=== PATIENT | female | born 1940 | race American Indian/Alaskan Native ===

== ENCOUNTER 2016-09-24 16:13 | Emergency (ER) | payer MEDICARE ==
[2016-09-24] MEDS ORDERED: NACL 0.9% 500 ML 500 ML IV ONE (16:37)
[2016-09-24] MEDS ORDERED: ZOFRAN IV ONE (16:37)
--- NOTE | 2016-09-24 16:42 | Emergency Department Report ---
ED N/V/D HPI - General Stated complaint: WEAKNESS Time Seen by Provider: 09/24/16 16:31 - History of Present Illness Initial comments: 75-year-old female here with complaint of generalized weakness and nausea. Also complains of pain around her backside. Denies fevers chills. States this is been getting worse over the last several days but today she felt significantly weaker. -: Gradual Associated Abdominal Pain: No (pain around rectum) Radiation: none Worsens with: none - Related Data Previous Rx's Medication Instructions Recorded Last Taken Type Aspirin [Aspirin BABY CHEW TAB] 81 mg PO QDAY #30 tab.chew 11/05/15 Unknown Rx Calcium Acetate 667 mg PO TID #90 capsule 11/05/15 Unknown Rx Carvedilol [Coreg] 25 mg PO BID #60 tablet 11/05/15 Unknown Rx Cinacalcet [Sensipar] 30 mg PO QDAY #30 tablet 11/05/15 Unknown Rx Insulin Glargine [Lantus VIAL] 12 units SUB-Q QHS #1 units 11/05/15 Unknown Rx Lisinopril [Zestril TAB] 40 mg PO QDAY #30 tablet 11/05/15 Unknown Rx Sevelamer Carbonate [Renvela] 800 mg PO TIDWM #90 tablet 11/05/15 Unknown Rx Vit B Cmplx 3/FA/Vit C/Biotin 1 each PO QDAY #30 tablet 11/05/15 Unknown Rx [Kira-Loco Rx Tablet] Allergies Allergy/AdvReac Type Severity Reaction Status Date / Time codeine AdvReac Nausea Verified 01/28/15 10:54 ED Review of Systems ROS: Stated complaint: WEAKNESS Other details as noted in HPI Comment: All other systems reviewed and negative Constitutional: weakness ENT: denies: ear pain, throat pain Respiratory: denies: cough, shortness of breath Cardiovascular: denies: chest pain, palpitations Gastrointestinal: denies: abdominal pain, nausea Genitourinary: denies: dysuria, frequency, hematuria Musculoskeletal: arthralgia Skin: denies: rash Neurological: weakness. denies: headache ED Past Medical Hx - Past Medical History Hx Hypertension: Yes Hx CVA: Yes ("MINI STROKES") Hx Congestive Heart Failure: Yes Hx Diabetes: Yes Hx Renal Disease: Yes (DIALYSIS --) Hx Arthritis: Yes Hx Kidney Stones: Yes Hx Dementia: Yes - Surgical History Hx Cholecystectomy: Yes Hx Appendectomy: Yes Additional Surgical History: HYSTERECTOMY. GRAFT LEFT UPPER ARM. - Family History Family history: no significant, renal disease - Social History Smoking Status: Never Smoker - Medications Home Medications: Home Medications Medication Instructions Recorded Confirmed Last Taken Type Aspirin [Aspirin BABY CHEW TAB] 81 mg PO QDAY #30 tab.chew 11/05/15 Unknown Rx Calcium Acetate 667 mg PO TID #90 capsule 11/05/15 Unknown Rx Carvedilol [Coreg] 25 mg PO BID #60 tablet 11/05/15 Unknown Rx Cinacalcet [Sensipar] 30 mg PO QDAY #30 tablet 11/05/15 Unknown Rx Insulin Glargine [Lantus VIAL] 12 units SUB-Q QHS #1 units 11/05/15 Unknown Rx Lisinopril [Zestril TAB] 40 mg PO QDAY #30 tablet 11/05/15 Unknown Rx Sevelamer Carbonate [Renvela] 800 mg PO TIDWM #90 tablet 11/05/15 Unknown Rx Vit B Cmplx 3/FA/Vit C/Biotin 1 each PO QDAY #30 tablet 11/05/15 Unknown Rx [Kira-Loco Rx Tablet] ED Physical Exam - General General appearance: alert, in no apparent distress - Head Head exam: Present: atraumatic, normocephalic - Eye Eye exam: Present: normal appearance - ENT ENT exam: Present: mucous membranes moist - Neck Neck exam: Present: normal inspection - Respiratory Respiratory exam: Present: normal lung sounds bilaterally. Absent: respiratory distress - Cardiovascular Cardiovascular Exam: Present: regular rate, normal rhythm, systolic murmur (2/6 systolic). Absent: diastolic murmur, rubs, gallop - GI/Abdominal GI/Abdominal exam: Present: soft, normal bowel sounds. Absent: distended, tenderness - Extremities Exam Extremities exam: Present: normal inspection - Back Exam Back exam: Present: normal inspection - Neurological Exam Neurological exam: Present: alert, oriented X3 - Psychiatric Psychiatric exam: Present: normal affect, normal mood - Skin Skin exam: Present: warm, dry, intact, normal color. Absent: rash ED Course Vital Signs 09/24/16 16:15 Temperature 98.2 F Pulse Rate 62 Respiratory 14 Rate Blood Pressure 142/52 Blood Pressure 142/52 [Left] O2 Sat by Pulse 100 Oximetry ED Medical Decision Making - Lab Data Result diagrams: 09/24/16 16:44 09/24/16 16:44 Laboratory Results - last 24 hr 09/24/16 09/24/16 09/24/16 16:44 16:44 16:44 WBC 4.3 L RBC 2.85 L Hgb 8.0 L Hct 24.5 L MCV 86 MCH 28 MCHC 33 RDW 22.8 H Plt Count 143 Lymph % (Auto) 10.9 L Glynn % (Auto) 8.7 H Eos % (Auto) 1.7 Baso % (Auto) 0.7 Lymph # 0.5 L Glynn # 0.4 Eos # 0.1 Baso # 0.0 Seg Neutrophils % 78.0 H Seg Neutrophils # 3.3 Sodium 142 Potassium 3.7 Chloride 99.1 Carbon Dioxide 23 Anion Gap 24 BUN 26 H Creatinine 3.5 H Estimated GFR 15 BUN/Creatinine Ratio 7.42 Glucose 156 H Calcium 8.4 Total Bilirubin 0.40 Direct Bilirubin < 0.2 Indirect Bilirubin 0.2 AST 18 ALT 10 Alkaline Phosphatase 84 Troponin T 0.055 H Total Protein 7.2 Albumin 4.2 Albumin/Globulin Ratio 1.4 Triglycerides 104 Cholesterol 179 LDL Cholesterol Direct 74 HDL Cholesterol 85 H Cholesterol/HDL Ratio 2.10 - Medical Decision Making Summary 75-year-old female here with complaint of generalized weakness and nausea. Plan basic workup CBC CMP and UA EKG troponin. CBC with slow trend of declining hemoglobin. Evaluated patient's sacral wound and it appears to be no more than a stage I decubitus. She otherwise appears well and states that she feels better. I do not see a need to admit her for acute transfusion at this point. Likely discharge. Patient has stable vitals and no active source of bleeding. I counseled her that she will need follow-up with her primary care for repeat blood work over the course of the next week. Patient is comfortable going home at this point. Portions of this chart were dictated with dictation software. There may be dictation errors contained within this note. IV fluids and Zofran and will reassess. Critical care attestation.: If time is entered above; I have spent that time in minutes in the direct care of this critically ill patient, excluding procedure time. ED Disposition Clinical Impression: Anemia in chronic kidney disease (CKD), Weakness Disposition: DC-01 TO HOME OR SELFCARE Is pt being admited?: No Does the pt Need Aspirin: No Condition: Stable Instructions: Anemia (ED), Weakness (ED) Referrals: PRIMARY CARE, [Primary Care Provider] - 3-5 Days
[2016-09-24 17:12] LABS: Basophils % (Auto) 0.7 % (0.0-1.8); Eosinophils % (Auto) 1.7 % (0.0-4.3); Hematocrit 24.5 % (30.3-42.9); Mean Corpuscular HGB Conc 33 % (30-34); Mean Corpuscular Hemoglobin 28 pg (28-32); Mean Corpuscular Volume 86 fl (79-97); Platelet Count 143 K/mm3 (140-440); Red Blood Count 2.85 M/mm3 (3.65-5.03); White Blood Count 4.3 K/mm3 (4.5-11.0)
[2016-09-24 17:22] LABS: Alanine Aminotransferase 10 units/L (7-56); Albumin 4.2 g/dL (3.9-5); Albumin/Globulin Ratio 1.4 %; Alkaline Phosphatase 84 units/L (35-129); Anion Gap 24 mmol/L; BUN/Creatinine Ratio 7.42; Blood Urea Nitrogen 26 mg/dL (7-17); Calcium 8.4 mg/dL (8.4-10.2); Carbon Dioxide 23 mmol/L (22-30); Chloride 99.1 mmol/L (98-107); Glucose 156 mg/dL (65-100); Potassium 3.7 mmol/L (3.6-5.0); Sodium 142 mmol/L (137-145); Total Protein 7.2 g/dL (6.3-8.2)
[2016-09-24 17:26] LABS: Red Cell Distribution Width 22.8 % (13.2-15.2)
[2016-09-24 17:27] LABS: Bilirubin,Direct < 0.2 mg/dL (0-0.2); Bilirubin,Indirect 0.2 mg/dL
[2016-09-24 19:13] VITALS: BP 142/77
== END 2016-09-24 19:12 | disposition home or self-care (01) ==
LOC: ED 16:13
DX: D63.1 Anemia in chronic kidney disease (principal); E11.22 Type 2 diabetes mellitus with diabetic chronic kidney disease; I12.0 Hypertensive chronic kidney disease with stage 5 chronic kidney disease or end stage renal disease; N18.6 End stage renal disease; Z99.2 Dependence on renal dialysis; F03.90 Unspecified dementia, unspecified severity, without behavioral disturbance, psychotic disturbance, mood disturbance, and anxiety
CPT/HCPCS: 36415; 80048; 80061; 80074; 84484; 85025; 96374; 99284; J2405; J7040

== ENCOUNTER 2017-03-20 16:40 | Emergency (ER) | payer MEDICARE ==
[2017-03-20] MEDS ORDERED: ASPIRIN PO ONE (17:35)
--- NOTE | 2017-03-20 18:19 | Emergency Department Report ---
ED Chest Pain HPI - General Chief Complaint: Chest Pain Stated Complaint: CHEST PAIN Time Seen by Provider: 03/20/17 18:05 Source: patient, family, EMS (ems notes not available at time of chart dictation), RN notes reviewed Mode of arrival: Stretcher Limitations: No Limitations - History of Present Illness Initial Comments: This is a 76-year-old female who is previously known to this provider, has a past medical history of hypertension and end-stage renal disease on dialysis. Patient had a cardiac catheterization at this hospital October 2015, which demonstrated "normal coronary anatomy" it also demonstrated an ejection fraction of 20%. The patient is sent to the ER today from dialysis for evaluation of chest pain. The chest pain is central. It did not radiate to the back, arms or neck. There is no vomiting or diaphoresis. There is no shortness of breath. There is no leg pain, there is no leg swelling, no recent travel history, no DVT or pulmonary embolus risk factors. Patient indicates the pain lasted for a few minutes to a few seconds, and it's gone away. She has no complaints at this time. I contacted he hatchery employee, Dr. Warren; he is covering for her primary hatchery employee, Dr. Ashkan Castro; [phone]. I presented the case to him, and indicated that she had unchanged troponins from prior, unchanged EKG from prior , and an essentially negative cardiac catheterization October 2015. We both agree that the patient does not cry admission to the hospital for acute coronary syndrome risk stratification, and he indicates he will have the patient 's primary hatchery employee get in touch with the patient within the next one or 2 days to arrange outpatient follow-up. Her x-ray the chest was unremarkable she did not desaturate, and she is clinically well-appearing. Extensive discussion had with patient's son who verbalized understanding. MD Complaint: chest pain -: Gradual Onset: during rest Pain Location: substernal, left chest, right chest Pain Radiation: none Severity: mild Quality: tightness Consistency: now resolved Improves With: nothing Worsens With: nothing re: denies: nausea, vomting, diaphoresis, dyspnea, sense of impending doom Other Symptoms: denies: cough, fever, syncope, rash, acid taste in mouth, leg swelling, palpitations, burping Treatments Prior to Arrival: none Aspirin use within the Past 7 Days: (1) Yes - Related Data On Oral Contraceptives: No Previous Rx's Medication Instructions Recorded Last Taken Type Aspirin [Aspirin BABY CHEW TAB] 81 mg PO QDAY #30 tab.chew 11/05/15 Unknown Rx Calcium Acetate 667 mg PO TID #90 capsule 11/05/15 Unknown Rx Carvedilol [Coreg] 25 mg PO BID #60 tablet 11/05/15 Unknown Rx Cinacalcet [Sensipar] 30 mg PO QDAY #30 tablet 11/05/15 Unknown Rx Insulin Glargine [Lantus VIAL] 12 units SUB-Q QHS #1 units 11/05/15 Unknown Rx Lisinopril [Zestril TAB] 40 mg PO QDAY #30 tablet 11/05/15 Unknown Rx Sevelamer Carbonate [Renvela] 800 mg PO TIDWM #90 tablet 11/05/15 Unknown Rx Vit B Comp No.3/Folic/C/Biotin 1 each PO QDAY #30 tablet 11/05/15 Unknown Rx [Kira-Loco Rx Tablet] Allergies Allergy/AdvReac Type Severity Reaction Status Date / Time codeine AdvReac Nausea Verified 01/28/15 10:54 Heart Score - HEART Score History: Slightly suspicious EKG: Non-specific Age: > 65 Risk factors: > 3 risk factors or hx of atherosclerotic disease Troponin: 1-3x normal limit HEART Score: 6 - Critical Actions Critical Actions: 4-6 pts:12-16.6% risk of adverse cardiac event. Should be admitted ED Review of Systems ROS: Stated complaint: CHEST PAIN Other details as noted in HPI ED Past Medical Hx - Past Medical History Previous Medical History?: Yes Hx Hypertension: Yes Hx CVA: Yes ("MINI STROKES") Hx Congestive Heart Failure: Yes Hx Diabetes: Yes Hx Renal Disease: Yes (DIALYSIS M-W-F) Hx Arthritis: Yes Hx Kidney Stones: Yes Hx Dementia: Yes - Surgical History Past Surgical History?: Yes Hx Cholecystectomy: Yes Hx Appendectomy: Yes Additional Surgical History: HYSTERECTOMY. GRAFT LEFT UPPER ARM. - Social History Smoking Status: Never Smoker Substance Use Type: None - Medications Home Medications: Home Medications Medication Instructions Recorded Confirmed Last Taken Type Aspirin [Aspirin BABY CHEW TAB] 81 mg PO QDAY #30 tab.chew 11/05/15 Unknown Rx Calcium Acetate 667 mg PO TID #90 capsule 11/05/15 Unknown Rx Carvedilol [Coreg] 25 mg PO BID #60 tablet 11/05/15 Unknown Rx Cinacalcet [Sensipar] 30 mg PO QDAY #30 tablet 11/05/15 Unknown Rx Insulin Glargine [Lantus VIAL] 12 units SUB-Q QHS #1 units 11/05/15 Unknown Rx Lisinopril [Zestril TAB] 40 mg PO QDAY #30 tablet 11/05/15 Unknown Rx Sevelamer Carbonate [Renvela] 800 mg PO TIDWM #90 tablet 11/05/15 Unknown Rx Vit B Comp No.3/Folic/C/Biotin 1 each PO QDAY #30 tablet 11/05/15 Unknown Rx [Kira-Loco Rx Tablet] ED Physical Exam - General Limitations: No Limitations ED Course Vital Signs 03/20/17 03/20/17 03/20/17 17:21 18:02 19:20 Temperature 98.4 F Pulse Rate 86 87 Respiratory 16 16 Rate Blood Pressure 188/79 175/81 O2 Sat by Pulse 100 100 Oximetry NEVILLE score - Neville Score Age > 65: (1) Yes Aspirin use within the Past 7 Days: (0) No 3 or more CAD Risk Factors: (1) Yes 2 or more Angina events in past 24 hrs: (0) No Known CAD with more than 50% Stenosis: (0) No Elevated Cardiac Markers: (1) Yes ST Deviation Greater than 0.5mm: (0) No NEVILLE Score: 3 ED Medical Decision Making - Lab Data Result diagrams: 03/20/17 17:35 03/20/17 17:35 Critical care attestation.: If time is entered above; I have spent that time in minutes in the direct care of this critically ill patient, excluding procedure time. ED Disposition Condition: Stable Referrals: ACE MURPHY MD [Primary Care Provider] - 3-5 Days
[2017-03-20 18:42] LABS: Basophils % (Auto) 0.6 % (0.0-1.8); Eosinophils # (Auto) 0.1 K/mm3 (0.0-0.4); Eosinophils % (Auto) 1.6 % (0.0-4.3); Hematocrit 34.3 % (30.3-42.9); Hemoglobin 10.9 gm/dl (10.1-14.3); Lymphocytes # (Auto) 0.3 K/mm3 (1.2-5.4); Lymphocytes % (Auto) 4.4 % (13.4-35.0); Mean Corpuscular HGB Conc 32 % (30-34); Mean Corpuscular Hemoglobin 27 pg (28-32); Mean Corpuscular Volume 85 fl (79-97); Monocytes # (Auto) 0.4 K/mm3 (0.0-0.8); Monocytes % (Auto) 7.5 % (0.0-7.3); Platelet Count 189 K/mm3 (140-440); Red Blood Count 4.04 M/mm3 (3.65-5.03); Red Cell Distribution Width 19.2 % (13.2-15.2)
[2017-03-20 18:55] LABS: Calcium 8.6 mg/dL (8.4-10.2)
[2017-03-20 18:59] LABS: INR 0.97 (0.87-1.13)
[2017-03-20 19:00] LABS: Partial Thromboplastin Time 29.3 Sec. (24.2-36.6)
[2017-03-20] MEDS ORDERED: ZESTRIL PO SCH (19:00)
[2017-03-20 19:10] LABS: Chol/HDL Ratio 2.45 %
--- NOTE | 2017-03-20 20:14 | Emergency Department Report ---
ED General Adult HPI - General Chief complaint: Chest Pain Stated complaint: CHEST PAIN Time Seen by Provider: 03/20/17 18:05 Source: patient, EMS, RN notes reviewed Mode of arrival: Stretcher Limitations: No Limitations - History of Present Illness Initial comments: This is a 76-year-old female who is previously known to this provider, has a past medical history of hypertension and end-stage renal disease on dialysis. Patient had a cardiac catheterization at this hospital October 2015, which demonstrated "normal coronary anatomy" it also demonstrated an ejection fraction of 20%. The patient is sent to the ER today from dialysis for evaluation of chest pain. The chest pain is central. It did not radiate to the back, arms or neck. There is no vomiting or diaphoresis. There is no shortness of breath. There is no leg pain, there is no leg swelling, no recent travel history, no DVT or pulmonary embolus risk factors. Patient indicates the pain lasted for a few minutes to a few seconds, and it's gone away. She has no complaints at this time. I contacted he embroidery worker, Dr. Warren; he is covering for her primary embroidery worker, Dr. Ashkan Castro; [phone]. I presented the case to him, and indicated that she had unchanged troponins from prior, unchanged EKG from prior , and an essentially negative cardiac catheterization October 2015. We both agree that the patient does not cry admission to the hospital for acute coronary syndrome risk stratification, and he indicates he will have the patient 's primary embroidery worker get in touch with the patient within the next one or 2 days to arrange outpatient follow-up. Her x-ray the chest was unremarkable she did not desaturate, and she is clinically well-appearing. Extensive discussion had with patient's son who verbalized understanding. -: Sudden Location: chest Radiation: non-radiation Consistency: now resolved Improves with: none Worsens with: none Associated Symptoms: denies other symptoms - Related Data Previous Rx's Medication Instructions Recorded Last Taken Type Aspirin [Aspirin BABY CHEW TAB] 81 mg PO QDAY #30 tab.chew 11/05/15 Unknown Rx Calcium Acetate 667 mg PO TID #90 capsule 11/05/15 Unknown Rx Carvedilol [Coreg] 25 mg PO BID #60 tablet 11/05/15 Unknown Rx Cinacalcet [Sensipar] 30 mg PO QDAY #30 tablet 11/05/15 Unknown Rx Insulin Glargine [Lantus VIAL] 12 units SUB-Q QHS #1 units 11/05/15 Unknown Rx Lisinopril [Zestril TAB] 40 mg PO QDAY #30 tablet 11/05/15 Unknown Rx Sevelamer Carbonate [Renvela] 800 mg PO TIDWM #90 tablet 11/05/15 Unknown Rx Vit B Comp No.3/Folic/C/Biotin 1 each PO QDAY #30 tablet 11/05/15 Unknown Rx [Kira-Loco Rx Tablet] Aspirin [Aspirin BABY CHEW TAB] 81 mg PO QDAY #30 tab.chew 03/20/17 Unknown Rx Allergies Allergy/AdvReac Type Severity Reaction Status Date / Time codeine AdvReac Nausea Verified 01/28/15 10:54 ED Review of Systems ROS: Stated complaint: CHEST PAIN Other details as noted in HPI Constitutional: denies: fever Eyes: denies: vision change ENT: denies: epistaxis Respiratory: denies: cough Cardiovascular: chest pain Gastrointestinal: denies: nausea, vomiting Genitourinary: as per HPI Musculoskeletal: as per HPI Skin: as per HPI Neurological: as per HPI Psychiatric: as per HPI Hematological/Lymphatic: as per HPI ED Past Medical Hx - Past Medical History Previous Medical History?: Yes Hx Hypertension: Yes Hx CVA: Yes ("MINI STROKES") Hx Congestive Heart Failure: Yes Hx Diabetes: Yes Hx Renal Disease: Yes (DIALYSIS -W-) Hx Arthritis: Yes Hx Kidney Stones: Yes Hx Dementia: Yes - Surgical History Past Surgical History?: Yes Hx Cholecystectomy: Yes Hx Appendectomy: Yes Additional Surgical History: HYSTERECTOMY. GRAFT LEFT UPPER ARM. - Social History Smoking Status: Never Smoker Substance Use Type: None - Medications Home Medications: Home Medications Medication Instructions Recorded Confirmed Last Taken Type Aspirin [Aspirin BABY CHEW TAB] 81 mg PO QDAY #30 tab.chew 11/05/15 Unknown Rx Calcium Acetate 667 mg PO TID #90 capsule 11/05/15 Unknown Rx Carvedilol [Coreg] 25 mg PO BID #60 tablet 11/05/15 Unknown Rx Cinacalcet [Sensipar] 30 mg PO QDAY #30 tablet 11/05/15 Unknown Rx Insulin Glargine [Lantus VIAL] 12 units SUB-Q QHS #1 units 11/05/15 Unknown Rx Lisinopril [Zestril TAB] 40 mg PO QDAY #30 tablet 11/05/15 Unknown Rx Sevelamer Carbonate [Renvela] 800 mg PO TIDWM #90 tablet 11/05/15 Unknown Rx Vit B Comp No.3/Folic/C/Biotin 1 each PO QDAY #30 tablet 11/05/15 Unknown Rx [Kira-Loco Rx Tablet] Aspirin [Aspirin BABY CHEW TAB] 81 mg PO QDAY #30 tab.chew 03/20/17 Unknown Rx ED Physical Exam - General Limitations: No Limitations General appearance: alert, in no apparent distress - Head Head exam: Present: atraumatic, normocephalic - Eye Eye exam: Present: normal appearance, EOMI. Absent: nystagmus - ENT ENT exam: Present: normal exam, normal orophraynx, mucous membranes moist, normal external ear exam - Neck Neck exam: Present: normal inspection, full ROM - Respiratory Respiratory exam: Present: normal lung sounds bilaterally. Absent: respiratory distress - Cardiovascular Cardiovascular Exam: Present: regular rate, normal rhythm, normal heart sounds. Absent: systolic murmur, diastolic murmur, rubs, gallop - GI/Abdominal GI/Abdominal exam: Present: soft, normal bowel sounds. Absent: distended, tenderness, guarding, rebound, rigid, pulsatile mass - Extremities Exam Extremities exam: Present: normal inspection, full ROM, normal capillary refill , other (upper extremity AV fistula noted, no redness, pus or streaking, appropriate thrill). Absent: pedal edema, joint swelling, calf tenderness - Back Exam Back exam: Present: normal inspection, full ROM. Absent: paraspinal tenderness , vertebral tenderness - Neurological Exam Neurological exam: Present: alert, oriented X3, CN II-XII intact, other ( Extraocular movements intact. Tongue midline. No facial droop. Facial sensation intact to light touch in the V1, V2, V3 distribution bilaterally. 5 and 5 strength in 4 extremities.. Sensation is intact to light touch in 4 extremities.). Absent: motor sensory deficit - Psychiatric Psychiatric exam: Present: normal affect, normal mood - Skin Skin exam: Present: warm, dry, intact, normal color. Absent: rash ED Course Vital Signs 03/20/17 03/20/17 03/20/17 17:21 18:02 19:20 Temperature 98.4 F Pulse Rate 86 87 Respiratory 16 16 Rate Blood Pressure 188/79 175/81 O2 Sat by Pulse 100 100 Oximetry ED Medical Decision Making - Lab Data Result diagrams: 03/20/17 17:35 03/20/17 17:35 Vital Signs 03/20/17 03/20/17 03/20/17 17:21 18:02 19:20 Temperature 98.4 F Pulse Rate 86 87 Respiratory 16 16 Rate Blood Pressure 188/79 175/81 O2 Sat by Pulse 100 100 Oximetry Lab Results 03/20/17 03/20/17 03/20/17 Range/Units 17:35 17:35 17:35 WBC 5.8 (4.5-11.0) K/mm3 RBC 4.04 (3.65-5.03) M/mm3 Hgb 10.9 (10.1-14.3) gm/dl Hct 34.3 (30.3-42.9) % MCV 85 (79-97) fl MCH 27 L (28-32) pg MCHC 32 (30-34) % RDW 19.2 H (13.2-15.2) % Plt Count 189 (140-440) K/mm3 Lymph % (Auto) 4.4 L (13.4-35.0) % Marin % (Auto) 7.5 H (0.0-7.3) % Eos % (Auto) 1.6 (0.0-4.3) % Baso % (Auto) 0.6 (0.0-1.8) % Lymph # 0.3 L (1.2-5.4) K/mm3 Marin # 0.4 (0.0-0.8) K/mm3 Eos # 0.1 (0.0-0.4) K/mm3 Baso # 0.0 (0.0-0.1) K/mm3 Seg Neutrophils % 85.9 H (40.0-70.0) % Seg Neutrophils # 5.0 (1.8-7.7) K/mm3 PT 13.4 (12.2-14.9) Sec. INR 0.97 (0.87-1.13) APTT 29.3 (24.2-36.6) Sec. Sodium 139 (137-145) mmol/L Potassium 4.7 (3.6-5.0) mmol/L Chloride 96.1 L (98-107) mmol/L Carbon Dioxide 26 (22-30) mmol/L Anion Gap 22 mmol/L BUN 37 H (7-17) mg/dL Creatinine 4.1 H (0.7-1.2) mg/dL Estimated GFR 13 ml/min BUN/Creatinine Ratio 9 % Glucose 203 H (65-100) mg/dL Calcium 8.6 (8.4-10.2) mg/dL Troponin T 0.087 H (0.00-0.029) ng/mL Triglycerides 173 H (2-149) mg/dL Cholesterol 177 (50-199) mg/dL LDL Cholesterol Direct 71 (50-130) mg/dL HDL Cholesterol 72 H (40-59) mg/dL Cholesterol/HDL Ratio 2.45 % 03/20/17 Range/Units 19:25 WBC (4.5-11.0) K/mm3 RBC (3.65-5.03) M/mm3 Hgb (10.1-14.3) gm/dl Hct (30.3-42.9) % MCV (79-97) fl MCH (28-32) pg MCHC (30-34) % RDW (13.2-15.2) % Plt Count (140-440) K/mm3 Lymph % (Auto) (13.4-35.0) % Marin % (Auto) (0.0-7.3) % Eos % (Auto) (0.0-4.3) % Baso % (Auto) (0.0-1.8) % Lymph # (1.2-5.4) K/mm3 Marin # (0.0-0.8) K/mm3 Eos # (0.0-0.4) K/mm3 Baso # (0.0-0.1) K/mm3 Seg Neutrophils % (40.0-70.0) % Seg Neutrophils # (1.8-7.7) K/mm3 PT (12.2-14.9) Sec. INR (0.87-1.13) APTT (24.2-36.6) Sec. Sodium (137-145) mmol/L Potassium (3.6-5.0) mmol/L Chloride (98-107) mmol/L Carbon Dioxide (22-30) mmol/L Anion Gap mmol/L BUN (7-17) mg/dL Creatinine (0.7-1.2) mg/dL Estimated GFR ml/min BUN/Creatinine Ratio % Glucose (65-100) mg/dL Calcium (8.4-10.2) mg/dL Troponin T 0.080 H (0.00-0.029) ng/mL Triglycerides (2-149) mg/dL Cholesterol (50-199) mg/dL LDL Cholesterol Direct (50-130) mg/dL HDL Cholesterol (40-59) mg/dL Cholesterol/HDL Ratio % - EKG Data 03/20/17 20:12 EKG #1 and #2 both demonstrate sinus, left axis deviation, left bundle branch block, QTC prolonged, not consistent with a STEMI, unchanged from prior EKG from 2016. - Radiology Data Radiology results: image reviewed interpreted by me: X-ray of the chest, interpreted by this provider, no acute disease - Medical Decision Making Differential diagnosis, including but not limited to: Acute coronary syndrome, pneumonia, pericarditis, myocarditis, GERD, gastritis Assessment and plan: 76-year-old female with chronic renal insufficiency, chronically elevated troponin which appears to be at baseline, chronic abnormal EKG with unchanged left bundle branch block, with a cardiac catheterization October 2015 which did not demonstrate significant luminal disease. The patient has been observed in the ER for hours without clinical decompensation. I have had extensive discussions with her family, and also contacted an outpatient embroidery worker who is going to arrange for close outpatient follow-up. Patient will be discharged at this time, son is going to make sure she follows up, return precautions reviewed. Critical care attestation.: If time is entered above; I have spent that time in minutes in the direct care of this critically ill patient, excluding procedure time. ED Disposition Clinical Impression: ESRD (end stage renal disease) on dialysis, Chest pain Disposition: TO HOME OR SELFCARE Is pt being admited?: No Does the pt Need Aspirin: No Condition: Stable Instructions: Chest Pain (ED) Additional Instructions: Continue current outpatient medications. Follow up with any of the listed cardiology groups within the next 2 days, or follow-up with her private embroidery worker within the next 2 days, Matthew Thomas MD Doctor in [place], [place] Address: [address] [place] [address] Femi Benitez, [place] [address] Return to the ER right away with the pain, worsening pain, migration of pain, fevers, chills, lethargy, irritability, projectile vomiting, confusion, inability to tolerate liquid feeds, vomiting blood, defecating blood, loss of consciousness. Referrals: ACE MURPHY MD [Primary Care Provider] - 3-5 Days [facility] [Provider Group] - 3-5 Days [facility] [Provider Group] - 3-5 Days
--- NOTE | 2017-03-20 20:18 | XRay Report ---
FINAL REPORT EXAM: XR CHEST ROUTINE 2V HISTORY: cp TECHNIQUE: Two view chest PA and lateral PRIORS: None. FINDINGS: Cardiac and mediastinal contours are unremarkable. No focal pulmonary infiltrate is identified. No pleural fluid collection seen. Pulmonary vasculature is unremarkable. IMPRESSION: Negative two-view chest
[2017-03-20 21:17] VITALS: BP 155/73
[2017-03-20] MEDS ORDERED: COREG PO SCH (22:00)
== END 2017-03-20 21:00 | disposition home or self-care (01) ==
LOC: ED 16:40
DX: I13.2 Hypertensive heart and chronic kidney disease with heart failure and with stage 5 chronic kidney disease, or end stage renal disease (principal); E11.22 Type 2 diabetes mellitus with diabetic chronic kidney disease; N18.6 End stage renal disease; I50.9 Heart failure, unspecified; M19.90 Unspecified osteoarthritis, unspecified site; Z99.2 Dependence on renal dialysis; Z79.4 Long term (current) use of insulin; Z79.82 Long term (current) use of aspirin; Z86.73 Personal history of transient ischemic attack (TIA), and cerebral infarction without residual deficits; Z88.6 Allergy status to analgesic agent
CPT/HCPCS: 36415; 71046; 80048; 80061; 84484; 85025; 85610; 85730; 93005; 93010; 99285